=== PATIENT | female | born 1960 | race Caucasian/White ===

== ENCOUNTER → 2017-12-19 | Outpatient (CLI) | payer OTHER | END | disposition home or self-care (01) | LOC: CFH 13:51 | PROVIDERS: ATTEND Nurse Practitioner | DX: Z12.2 Encounter for screening for malignant neoplasm of respiratory organs (principal); F17.210 Nicotine dependence, cigarettes, uncomplicated | CPT/HCPCS: G0297 ==

== ENCOUNTER 2019-09-02 09:42 | Emergency (ER) | payer MEDICAID, OTHER ==
[~2019-09-02] VITALS: Ht 162.6 cm; Wt 70.5 kg
[2019-09-02 10:09] VITALS: BP 133/77
[2019-09-02] MEDS ORDERED: ACYC-114 PO (10:29)
[2019-09-02] MEDS ORDERED: GEMF600T8 PO (10:29)
[2019-09-02] MEDS ORDERED: DULO30CA2 PO (10:29)
[2019-09-02] MEDS ORDERED: HYDR-3653 PO (10:29)
[2019-09-02] MEDS ORDERED: AMLO10TA8 PO (10:29)
[2019-09-02] MEDS ORDERED: NEOSPORIN OINT. PKT 1 PACKET ONE (10:52)
[2019-09-02] MEDS ORDERED: CEFAZOLIN 1,000 MG IM ONE (11:00)
[2019-09-02] MEDS ORDERED: CEFAZOLIN 1,000 MG ONE (11:08)
== END 2019-09-02 11:45 | disposition home or self-care (01) ==
LOC: ED 11:39
DX: S61.452A Open bite of left hand, initial encounter (principal); L03.113 Cellulitis of right upper limb; W54.0XXA Bitten by dog, initial encounter; Y93.89 Activity, other specified; Y92.89 Other specified places as the place of occurrence of the external cause; Y99.8 Other external cause status
CPT/HCPCS: 29125; 96372; 99283; J0690

== ENCOUNTER 2019-09-03 14:55 | Emergency (ER) | payer MEDICAID ==
[~2019-09-03] VITALS: Ht 162.6 cm; Wt 70.4 kg
[~2019-09-03 14:55] MED LIST: ACYC-114 PO; AMLO10TA8 PO; DULO30CA2 PO; GEMF600T8 PO; HYDR-3653 PO
[2019-09-03 14:56] VITALS: BP 131/87
[2019-09-03] MEDS ORDERED: NEOSPORIN OINT. PKT 1 PACKET ONE (15:29)
== END 2019-09-03 16:15 | disposition home or self-care (01) ==
LOC: ED 15:46
DX: S60.572A Other superficial bite of hand of left hand, initial encounter (principal); L03.114 Cellulitis of left upper limb; F17.200 Nicotine dependence, unspecified, uncomplicated; W54.0XXA Bitten by dog, initial encounter; Y93.89 Activity, other specified; Y92.89 Other specified places as the place of occurrence of the external cause; Y99.8 Other external cause status
CPT/HCPCS: 29260; 99283